=== PATIENT | male | born 1970 | race Caucasian/White ===

== ENCOUNTER → 2020-03-09 14:39 | Outpatient (BNVA) | payer OTHER, SELFPAY | PROVIDERS: Family Provider Nurse Practitioner; PCP Nurse Practitioner; Visit Provider Nurse Practitioner | DX: I10 Essential (primary) hypertension (principal); K40.30 Unilateral inguinal hernia, with obstruction, without gangrene, not specified as recurrent | CPT/HCPCS: 80053; 80061; 81000; 85025 ==

== ENCOUNTER 2020-04-06 11:02 | Outpatient (CLI) | payer OTHER, SELFPAY ==
--- NOTE | 2020-04-06 11:07 | XR_ITS ---
WS: [id number] PELVIS TECHNIQUE: 1 view(s) of the pelvis CLINICAL INFORMATION: M25.551 - Pain in right hip COMPARISON: None. FINDINGS: Moderate to advanced degenerative arthritis right hip with joint space narrowing and near bone-on-bon e articulation. [id number] articulation superolateral joint space. Subchondral sclerosis. Hypertrop hic spurring along the femoral neck. Moderate degenerative arthritis left hip. Pelvic phleboliths. XR/XR pelvis 1-2V* [id number] IMPRESSION: Moderate to advanced degenerative arthritis right hip with [id number] articul ation in the superior lateral joint space with subchondral sclerosis.
== END 2020-04-06 11:03 | disposition home or self-care (01) ==
LOC: RADWPI 11:06
PROVIDERS: PCP Nurse Practitioner; Visit Provider Surgery
DX: M16.11 Unilateral primary osteoarthritis, right hip (principal)
CPT/HCPCS: 72170

== ENCOUNTER → 2020-04-21 15:04 | Outpatient (BNVA) | payer OTHER, SELFPAY | PROVIDERS: PCP Nurse Practitioner; Referring Provider Surgery; Visit Provider Orthopaedic Surgery | DX: M25.551 Pain in right hip (principal) | CPT/HCPCS: 73502 ==

== ENCOUNTER → 2020-05-20 10:38 | Outpatient (BNVA) | payer OTHER, SELFPAY | PROVIDERS: PCP Nurse Practitioner; Visit Provider Orthopaedic Surgery | DX: Z20.822 Contact with and (suspected) exposure to COVID-19 (principal); Z01.812 Encounter for preprocedural laboratory examination | CPT/HCPCS: 87635 ==

== ENCOUNTER 2020-05-25 15:10 | Observation (INO) | payer OTHER, SELFPAY ==
[2020-05-11 10:07] VITALS: BMI 38.6
--- NOTE | 2020-05-11 14:13 | P.ANESASSM_ITS ---
Pre-Anesthetic Assessment Pre-Anesthetic Assessment: Height/Weight: Height 1.83 m Weight 129.274 kg Preop Diagnosis: Osteoarthritis right hip Proposed Procedure: Operation Date: 05/25/20 07:00 Proposed Procedures p Total Hip Arthroplasty right 72351 M16.11(Right) - Norberto Bishop MD Was Beta Pedro taken within 24 hours: N/A Social: Social History: No alcohol and No tobacco Exam: Pre-Anes Outpt Exam: alert, oriented x 3, clear to auscultation bilaterally and regular rate & rhythm Airway: Submandibular: WNL Cervical ROM: WNL MP: 2 Dentition: Full History/ROS: No significant history except as noted Metabolic: Metabolic: Morbid obesity Anesthetic Plan: ASA status: 3 Anesthesia: Regional (specify below) Other: SAB Risk of > 500 ml blood loss (7ml/kg in children): Yes, adequate IV access and fluids planned PFSH Anesthesia 2 PFSH: Medical History HTN (hypertension), benign Surgical History H/O circumcision History of tonsillectomy Hx of vasectomy Family History Other Dementia Diabetes Hypertension Stroke Denies family history of Anesthesia complication Bleeding disorder Cancer Social History Smoking and tobacco status: never smoked Second hand smoke exposure: No Smoking risk assessment/counseling performed?: No Alcohol intake: never Desire information about alcohol rehabilitation?: No Counseling given: No Desire information about substance/drug rehabilitation?: No Counseling given: No Adopted: No Caregiver/support person: No Lives independently: Yes Household members: spouse and children Housing: House Marital status: Number of children: 1 service: No Current occupational status: employed Current occupation: [employer] Pets and animals: Yes Pets & animals: cat(s) History of recent travel: No Current gender identity: Male Data Anesthesia Cardiac Studies: No Data to Display
[2020-05-25] VITALS (20 sets, daily range): BP systolic 78–161; BP diastolic 48–109; PULSE 59–89; RESP 16–20; TEMP 36.3–36.8; O2SAT 94–100
[2020-05-25] MEDS: acetaminophen 500 mg Tablet 1000 MG PO ×2 (08:09→17:17)
[2020-05-25] MEDS: sodium chloride 0.9% 1,000 ML 30 ML IV (08:10)
[2020-05-25] MEDS: gabapentin 300 mg Capsule PO ×2 (08:10→17:18)
[2020-05-25] MEDS: oxyCODONE 20 mg ER (12 HR) Tablet PO (08:10)
[2020-05-25] MEDS: CELEcoxib 200 mg Capsule 400 MG PO (08:11)
--- NOTE | 2020-05-25 08:51 | P.ANESUD_ITS ---
Pre-Anesthetic Update Pre-Anesthetic Assessment: Date of Surgery/Procedure: 05/25/20 Preop [place] gnosis: Osteoarthritis right hip Proposed Procedure: Operation Date: 05/25/20 09:30 Proposed Procedures p Total Hip Arthroplasty right 40514 M16.11(Right) - Norberto Bishop MD Any changes to Pre-Anesthetic Assessment?: No Last Intake: Intake Last Liquid Date 05/25/20 Last Liquid Time 20:30 Last Solid Date 05/24/20 Last Solid Time 20:30 Vitals: Temperature 97.3 F L 05/25/20 07:40 Pulse Rate 78 05/25/20 07:40 Pulse Rhythm 05/25/20 07:41 Respiratory Rate 18 05/25/20 08:10 Respiratory Effort 05/25/20 08:10 Respiratory Depth Normal 05/25/20 08:10 Respiratory Patter n 05/25/20 08:10 Blood Pressure 161/109 05/25/20 07:40 Blood Pressure Love n 126 05/25/20 07:40 Pulse Oximetry 98 05/25/20 08:10 Oxygen Delivery Me thod 05/25/20 07:41 Exam: Pre-Anes Outpt Exam: alert, oriented x 3, clear to auscultation bilaterally and regular rate & rhythm Cardiac Studies: No Data to Display
--- NOTE | 2020-05-25 09:14 | P.HP_ITS ---
Same Day Surgery H&P Indication for Procedure/HPI DATE OF PROCEDURE: May 25, 2020 CHIEF COMPLAINT/INDICATIONFOR SURGICAL PROCEDURE: Osteoarthritis right hip PREOP DIAGNOSIS: Osteoarthritis right hip PLANNED PROCEDRUE: Operation Date: 05/25/20 09:30 Proposed Procedures p Total Hip Arthroplasty right 78414 M16.11(Right) - Norberto Bishop MD Medications/Allergies* Home Medications Medication Instructions Recorded Confirmed Type acetaminophen [Acetaminophen Pain 500 mg PO BID PRN 05/11/20 05/11/20 History Relief] Allergies/Adverse Reactions Allergy/AdvReac Type Severity Reaction Status Date / Time Penicillins Allergy rash Verified 05/25/20 07:38 Pertinent History/Comorbid Conditions* Medical History (Updated 04/21/20 @ 15:49 by Norberto Bishop MD) HTN (hypertension), benign Surgical History (Updated 03/16/20 @ 12:22 by Mohit Lima MD) H/O circumcision History of tonsillectomy Hx of vasectomy Family History (Updated 03/16/20 @ 12:04 by Marquita Montanez LPN) Diabetes Dementia Hypertension Stroke Denies family history of Anesthesia complication Bleeding disorder Cancer Social History Smoking and tobacco status: never smoked Second hand smoke exposure: No Smoking risk assessment/counseling performed?: No Alcohol intake: never Desire information about alcohol rehabilitation?: No Counseling given: No Desire information about substance/drug rehabilitation?: No Counseling given: No Adopted: No Caregiver/support person: No Lives independently: Yes Household members: spouse and children Housing: House Marital status: Number of children: 1 service: No Current occupational status: employed Current occupation: [employer] Pets and animals: Yes Pets & animals: cat(s) History of recent travel: No Current gender identity: Male Pertinent Exam Findings alert, oriented x 3, clear to auscultation bilaterally, regular rate & rhythm and operative site marked Recommendations Surgery/Procedure today Coding Level of Care Code Acute Corporate Development Manager for Yenni Allen
[2020-05-25] MEDS: tranexamic acid 1,000 mg/10mL SDV 1000 MG IRRIGATION (14:29)
--- NOTE | 2020-05-25 15:53 | XRR_ITS ---
PROCEDURE INFORMATION: Exam: XR Right Hip with Pelvis when Performed Exam date and time: 05/25/2020 3:57 PM Age: 49 years old Clinical indication: Device placement; Other: Post total hip arthroplasty; Prior surgery TECHNIQUE: Imaging protocol: XR Right hip with pelvis when performed. Views: 1 view. COMPARISON: CR (PELVIS, ) 04/21/2020 3:10 PM FINDINGS: Bones/joints: Right hip arthroplasty alignment is unremarkable. No periprosthetic fracture. Soft tissues: Foci of soft tissue gas in the right lateral hip. XR/XR hip RT 1V wo/w pel [id number] IMPRESSION: Unremarkable postoperative appearance of right hip arthroplasty.
--- NOTE | 2020-05-25 15:59 | SUR.PHASEI ---
PT AWAKE ALERT ON RA TRIAL, PT DENIES PAIN AND NAUSEA FIRST ICE TO RT HIP DRESSING D/I , ABD PILLOW IN PLACE WITH SCD TO LT LEG WITH DISTAL FOOT PINK WARM WITH STRONG PULSE NOTEDIV PATENT TO RT HAND.
--- NOTE | 2020-05-25 16:00 | PM.OP ---
Operative Report Date of procedure: May 25, 2020 Pre-op Diagnosis: Osteoarthritis right hip Post-op diagnosis: same Post-op Findings: Same Procedure Done: Right total hip arthroplasty Implants: ) [employer] 56 mm ADM acetabular shell 2) Size 7 René 132 degree neck angle SecureFit Max stem 3} 28 mm standard femoral head 4} Restorationa ADM X3 insert Pathology: none sent Surgeon: Norberto Bishop Anesthesia: Nerve Block (Spinal) Estimated blood loss (mL): 100 Complications: None Condition: stable Disposition: PACU Procedure: The patient was taken to the operating room and anesthesia provided by the anesthesia service. The patient was placed in the lateral position on a beanbag. A timeout was performed. The patient was draped in the usual fashion. A 15 cm long incision was made beginning just proximal to the greater trochanter and extending posteriorly to a point just distal to the trochanter on the posterior border of the trochanter. Dissection was carried down with electrocautery through the subcutaneous fat to the fascia nya which was divided proximally and distally with curved scissors. The anterior two thirds of the gluteus medius and minimus were elevated off the hip with electrocautery. The capsule was divided in a H-like fashion. The hip was dislocated and a neck cut made just above the level of the lesser trochanter. Exposure of the acetabulum was facilitated with the acetabular retractors. Remnants of labrum and peripheral osteophytes were removed with electrocautery and a rongeur. A reamer 2 mm under the size the femoral head was utilized to ream medially to the base of the palm and are. Reaming was then increased in 1 mm intervals until a healthy rim a trabecular bone was encountered. A trial ADM cup was placed and its position marked with electrocautery In the acetabulum. A final was press-fit into place. Attention was then focused on the femur. Sequential reaming was done under power until cortical chatter was encountered. Broaching was then accomplished until a stable broach size was obtained. A trial reduction with the head and neck provided excellent stability. The wound was irrigated with saline and antibiotic solution. The final René SecureFit Max stem was press-fit into place. The femoral head was placed and the hip was reduced. The hip was brought through range of motion and found to be free of impingement and stable. The anterior capsule was reapproximated with 1 Ethibond. The gluteus medius and minimus were repaired through bone with 5 Ethibond and reinforced with 1 Ethibond. The fascial nya was closed with a running 0 Stratafix suture. Deep pelvic tissues were closed with 2-0 Stratafix and the skin with a running 3-0 moncryl Stratafix. 1
--- NOTE | 2020-05-25 16:07 | SUR.PHASEI ---
SPINAL LEVEL NOW T-12 FROM T-10 ON ADMIT TO PACU, PT STILL UNABLE TO MOVE TOES.
[2020-05-25 17:02] LABS: Glucose Point of Care 80 mg/dL (70-110)
[2020-05-25] MEDS: sennosides-docusate Tablet 2 TAB PO (17:17)
[2020-05-25] MEDS: sodium chloride 0.9% 1,000 ML 100 ML IV (17:18)
[2020-05-25] MEDS: CELEcoxib 200 mg Capsule PO (20:16)
[2020-05-25] MEDS: oxyCODONE 5 mg IR Tab/Cap 10 MG PO ×2 (20:16→23:35)
[2020-05-25 21:31] LABS: Glucose Point of Care 116 mg/dL (70-110)
[2020-05-26] MEDS: acetaminophen 500 mg Tablet 1000 MG PO ×2 (01:50→08:16)
[2020-05-26 02:40] LABS: Hemoglobin 12.8 g/dL (11.7-16.6)
[2020-05-26] MEDS: sodium chloride 0.9% 1,000 ML 100 ML IV (02:58)
[2020-05-26 04:12] VITALS: BP 120/74; PULSE 88; RESP 18; TEMP 37.4; O2SAT 93
[2020-05-26 04:15] VITALS: RESP 18; O2SAT 97
[2020-05-26] MEDS: oxyCODONE 5 mg IR Tab/Cap 10 MG PO ×2 (04:15→08:20)
[2020-05-26 07:41] VITALS: BP 152/81; PULSE 85; RESP 18; TEMP 37.5; O2SAT 93
--- NOTE | 2020-05-26 08:01 | PM.DCS ---
Discharge Providers Date of Admission: 05/25/20 15:10 Date of Discharge: May 26, 2020 Attending Provider at Admission: Norberto Bishop MD Attending Provider at Discharge: Norberto Bishop MD Primary Care Provider: MABEL Mcdaniels Diagnoses at Discharge Discharge Diagnosis (1) Status post right hip replacement: Status: Acute (2) Osteoarthritis of right hip: Status: Resolved Reason for Visit Reason for Visit: osteoarthrisis right hip Hospital Course Hospital Course The patient was admitted to the hospital after elective right total hip arthroplasty. Postoperatively he did well. His pain was controlled with oral medications. On the first postoperative day he was up with therapy independent with his walker. He was managed with aspirin and sequential compression dressings for DVT prophylaxis. Physical Exam Narrative: EXAM NARRATIVE: On the day of discharge the hip incision was clean. The incision was free of drainage. They had no particular swelling about the thigh or distal. No distal neurovascular deficits were noted. Discharge Data Data Completed and Pending: Completed Studies During Hospitalization Category Date Time Status XR hip RT 1V wo/w pel [id number] Routine Exams 05/25/20 15:53 Completed Labs from last 24 hours 05/26/20 05/25/20 05/25/20 02:20 20:33 16:50 Hgb 12.8 POC Glucose 116 H 80 Vitals: Last Vital Signs Temp 99.5 F 05/26/20 07:41 Pulse 85 05/26/20 07:41 Resp 18 05/26/20 07:41 BP 152/81 05/26/20 07:41 Pulse Ox 93 05/26/20 07:41 Discharge Plan Discharge Patient Disposition: Home Prescriptions: New oxycodone 5 mg Tablet 5 mg PO Q4H PRN (Reason: Severe Pain) 7 Days Qty: 40 RF: 0 celecoxib 200 mg Capsule 200 mg PO Q12H 15 Days Qty: 30 RF: 0 gabapentin 300 mg Capsule 300 mg PO BID 14 Days Qty: 28 RF: 0 acetaminophen 500 mg Tablet 500 mg PO Q6H 30 Days Qty: 120 RF: 0 aspirin 325 mg Tablet,Delayed Release (Dr/Ec) 325 mg PO DAILY 30 Days Qty: 30 RF: 0 Discontinued mupirocin 2 % ointment 1 applic topical BID Qty: 22 RF: 0 Acetaminophen Pain Relief 500 mg Tablet 500 mg PO BID PRN (Reason: Pain) RF: 0 Discharge Orders: Discharge Order (Routine); Ordered 05/26/20 Ordered By: Norberto Bishop Other Ambulatory Orders: DME: Walker (Order) Location: None Selected Ordered By: Norberto Bishop Referrals: Norberto Bishop MD [Physician] - 2 weeks Discharge Diet: Advance as tolerated Discharge Activity: Limit activity as instructed Activity Restrictions/Additional Instructions: Okay to shower. No soaking incision in tub Apply FirstIce up to 20 min/hr for pain and swelling Take Celebrex twice a day for the next 15 days for pain , discontinue other anti-inflammatories Take Neurontin twice a day for 7 days. Take Tylenol 325mg (up to 3 tabs) 3 times a day for mild pain take oxycodone for breakthrough pain. Exercises per physical therapy. May weight-bear as tolerated on total hip arthroplasty Discharge Attestations Time Spent in Discharge Care*: other Quality Metrics Clinical Quality Measures During this hospital stay, did patient experience: None Coding Level of Care Code Acute Sound Engineering Technician for Yenni Allen Diagnoses Status post right hip replacement Z96.641 Osteoarthritis of right hip M16.11
[2020-05-26] MEDS: CELEcoxib 200 mg Capsule PO (08:16)
[2020-05-26] MEDS: sennosides-docusate Tablet 2 TAB PO (08:16)
[2020-05-26] MEDS: gabapentin 300 mg Capsule PO (08:17)
[2020-05-26] MEDS: aspirin 325 mg EC Tablet PO (08:17)
[2020-05-26 08:20] VITALS: RESP 18
[2020-05-26 08:55] LABS: Glucose Point of Care 132 mg/dL (70-110)
--- NOTE | 2020-05-26 10:10 | PC.CHAP ---
Pastoral Care Encounter/Spiritual Assessment Type of Contact [] Declined senior account manager visit [] Patient/Family/Request visit [] Outpatient visit [] Follow-up visit [] Physician referral [] Code/Alert [x] Routine visit [] Staff referral [] Actively dying [] Patient sleeping [] Family support [] [] Out of room [] Palliative care [] [x] Receiving care in room [] Pre-surgical visit [] Trauma [] Long length of stay [] ICU visit [] Other: Relational/Emotional Strength [] Patient feels connected with others/family/visitors/staff [] Distress [] Loneliness/isolation [] Abandonment Spirituality of Patient [] Person of Ellen [] Attends Advent of their Ellen [] Believes in Prayer [] Reads Bible or Tenriism materials [] There are Spiritual issues to be addressed Care Nurse Rn Interventions [] Prayer [] Active listening [] Non-anxious presence [] Spiritual/emotional support [] Crisis/trauma care [] Spiritual counseling [] Bereavement support [] Provided bereavement packet [] Provided Bible/devotional materials [] Provided toy/stuffed animal, coloring book to patient or family member [] Provided Communion [] Anointing/[place] [] Salvation [] Completed spiritual assessment [] Other: Impact on Illness or Injury [] Angry [] Fearful [] Anxious [] Often cries [] Exhaustion [] Unable to work [] Unable to attend adventist [] Unable to walk/stand [] Unable to read [] Unable to drive [] Unable to eat/drink [] Unable to sleep [] Unable to be with family [] Patient intubated [] Other: Summary Time spent with patient
[2020-05-26 11:53] VITALS: BP 107/61; PULSE 93; RESP 18; TEMP 37.1; O2SAT 96
[2020-05-26] MEDS: ondansetron 2 mg/ML SDV 2 mL 4 MG IVP (11:54)
--- NOTE | 2020-05-26 11:58 | PC.NURSE ---
Nausea Pt c/o nausea and was given 4mg zofran iv. Blood pressure has improved at 112/80.
[2020-05-26 14:53] VITALS: BP 107/61; PULSE 93; RESP 18; TEMP 37.1; O2SAT 96
== END 2020-05-26 15:00 | disposition home or self-care (01) ==
LOC: MEDSURG 15:10
PROVIDERS: Admitting Provider Orthopaedic Surgery; PCP Nurse Practitioner; Visit Provider Orthopaedic Surgery
PROC: (CPT 27130; principal; 2020-05-25 09:30)
DX: M16.11 Unilateral primary osteoarthritis, right hip (principal); E66.01 Morbid (severe) obesity due to excess calories; Z68.38 Body mass index [BMI] 38.0-38.9, adult
CPT/HCPCS: 27130; 12345; 36415; 36416; 73501; 82962; 85018; 97116; 97161; 97165; 97530; C1776; G0378; J0690; J1580; J2250; J2405; J2704; J3010; J7030

== ENCOUNTER → 2020-07-07 09:07 | Outpatient (BNVA) | payer OTHER, SELFPAY | PROVIDERS: PCP Nurse Practitioner; Visit Provider Orthopaedic Surgery | DX: Z96.641 Presence of right artificial hip joint (principal) | CPT/HCPCS: 73502 ==

== ENCOUNTER 2021-05-21 11:59 | Observation (INO) | payer OTHER, SELFPAY ==
[2021-05-21 12:09] VITALS: BP 166/84; PULSE 94; RESP 18; TEMP 36.6; O2SAT 96; BMI 39.3
--- NOTE | 2021-05-21 12:13 | XR_ITS ---
WS: [id number] XR chest 1V portable [id number] REASON FOR EXAM: CP FINDINGS: The heart and mediastinum are within normal limits. Calcified granulomatous changes in both thoraces. Elevation of the lateral left hemidiaphragm. No acute pulmonary parenchymal or pleural abnormality. Degenerative spondylosis in the mid and lower thoracic spine. XR/XR chest 1V portable [id number] IMPRESSION: No acute abnormality.
--- NOTE | 2021-05-21 12:13 | ECG_ITS ---
[facility] Test Date: 2021-05-21 Pat Name: Rei Rosenberg Department: Room: Gender: Male Data Manager: : 1970 Requested By: Robert Florentino Order Number: [id number] Phoebe MD: Emerson Lenz M.D. Measurements Intervals [place] Rate: 96 P: 46 SD: 183 QRS: -21 QRSD: 90 T: 56 QT: 344 QTc: 435 Interpretive Statements SINUS RHYTHM BORDERLINE LEFT AXIS DEVIATION [QRS AXIS < -20] POSSIBLE RIGHT VENTRICULAR CONDUCTION DELAY [RSR (QR) IN V1/V2] No previous ECG available for comparison Electronically Signed On 05-21-2021 17:39:14 FREIGHT SORTER by Emerson Lenz M.D. [id number]
--- NOTE | 2021-05-21 13:48 | ED_ITS ---
HPI - Chest Pain General: Chief Complaint: ER Hold Stated Complaint: cp Time Seen by Provider: 05/21/21 13:48 History of Present Illness: Mr. Rosenberg is a 50-year-old gentleman without significant past medical history presents emergency department due to chest pain. He reports being at his baseline health past few days. This morning, while shoveling snow he developed chest pressure in the middle of his chest with radiation to left chest as well as nausea, diaphoresis, and ashen appearance. Intensity of symptoms was moderate to severe. He was short of breath with this. He reports that this has slowly resolved and is only minimal intensity. He has not had similar episode in the past. Denies history of smoking, no known history of hypertension or other cardiac risk factors, no positive family history less than 60. No other specific change in health, exacerbating, relie ving factors identified. Onset (ago): hour(s) Timing of current episode: constant and still present Prior episodes: No Onset: during exertion Pain location: substernal Severity: severe Quality: aching and heaviness Relieving factors: nothing Exacerbating factors: exertion Associated symptoms: Reports diaphoresis, dyspnea, nausea and vomiting Review of Systems General: Reports: 10 or more systems reviewed and unremarkable except in HPI and below Const: Reports: diaphoresis Resp: Reports: dyspnea GI: Reports: nausea and vomiting PFSH ED PFSH: Medical History HTN (hypertension), benign Inguinal hernia of right side with obstruction and without gangrene Obesity Surgical History H/O circumcision History of hip replacement History of tonsillectomy Hx of vasectomy Family History Father CAD (coronary artery disease) Mother CAD (coronary artery disease) Other Dementia Diabetes Hypertension Stroke Denies family history of Anesthesia complication Bleeding disorder Cancer Social History Smoking and tobacco status: never smoked Second hand smoke exposure: No Smoking risk assessment/counseling performed?: No Alcohol intake: never Desire information about alcohol rehabilitation?: No Counseling given: No Desire information about substance/drug rehabilitation?: No Counseling given: No Adopted: No Caregiver/support person: No Lives independently: Yes Household members: spouse and children Housing: House Marital status: Number of children: 1 service: No Current occupational status: employed Current occupation: [employer] Pets and animals: Yes Pets & animals: cat(s) History of recent travel: No Current gender identity: Male Physical Exam Const: COMMON NORMALS: alert GENERAL APPEARANCE: cooperative and well developed NUTRITIONAL APPEARANCE: obese HENMT: COMMON NORMALS: normocephalic and atraumatic HEAD & SCALP: normocephalic and atraumatic Eye: COMMON NORMALS: conjunctivae normal CONJUNCTIVA: Yes conjunctivae normal SCLERA: sclerae normal Neck/C-Spine: COMMON NORMALS: supple GENERAL: Yes trachea midline Resp: COMMON NORMALS: normal respiratory effort EFFORT & INSPECTION: Yes able to speak in complete sentences Cardio: COMMON NORMALS: regular rate and regular rhythm RATE: regular rate RHYTHM: regular rhythm GI: COMMON NORMALS: Soft to palpation PALPATION: Yes Soft to palpation and No Tenderness to palpation present (GI) PERCUSSION: normal to percussion Extremity: GENERAL: Yes normal exam except as noted and No edema Neuro: COMMON NORMALS: moves all extremities SENSORIUM/ORIENTATION: Yes alert and No Orientation impaired Psych: COMMON NORMALS: mental status grossly normal and Normal thought process present THOUGHT PROCESS: Normal thought process present Course ED course: - Patient was seen and evaluated by me at bedside - Patient placed on cardiac monitors, IV access obtained - Initial evaluation notable for exam as above -Aspirin given - Labs notable for mild dehydration. Negative troponins. - Imaging notable for no lobar consolidation on chest x-ray - Upon serial reexamination after treatment the patient was similar. - Based on patient history, evaluation, labs, and imaging as interpreted the mos t likely cause of the patient's condition is chest pain -Discussed with cardiology for potential cardiac cath - The results of ED evaluation were discussed with the patient including plan for admission due to requirement for level of care not available if discharged to prevent significant worsening/deterioration. - Admitting service was contacted and Dr Yu with the hospitalist service agreed to admit the patient - Patient was admitted without further deterioration or significant events. Note: Click bubbles or prepopulated silva in note writing are used for assistance with data collection and billing and are inherently more limited than narrative and other text portions of this note. Please use narrative for additional clinical history and defer to narrative/free test for any case of contradictory information. If information appears in only free text or click bubble it shou ld be considered present or absent as reported. Please contact note business writer for clarifications of clinical information or contradictory information. MDM is a brief summary, contradictory or erroneous seeming information should be clarified and full note should be reviewed. Vital Signs: Vital signs: Vital Signs Temperature 98.2 F 05/22/21 09:11 Pulse Rate 78 05/22/21 16:15 Respiratory Rate 17 05/22/21 16:15 Blood Pressure 120/78 05/22/21 18:00 Pulse Oximetry 92 05/22/21 09:11 MDM - Chest Pain Medical Decision Making 50-year-old gentleman with obesity presenting with chest pain in the context of exertion. Patient has typical cardiac chest pain during this exertional episode without history of frequent. Heart score is moderate risk. After discussion with cardiology patient will be admitted for likely cardiac cath. Medical Records I reviewed the patient's medical records. Lab Data I reviewed the patient's lab results. : 05/22/21 05:02 05/22/21 05:02 Radiology Impressions Chest X-Ray 05/21/21 12:13 IMPRESSION: No acute abnormality. Laboratory Results WBC 8.3 10^3/uL (4.0-10.0) 05/21/21 14:32 RBC 5.35 10^6/uL (4.1-5.3) H 05/21/21 14:32 Hgb 15.4 g/dL (11.7-16.6) 05/21/21 14:32 Hct 49.0 % (42.0-52.0) 05/21/21 14:32 MCV 91.6 fl (80-94) 05/21/21 14:32 MCH 28.8 pg (28.0-34.0) 05/21/21 14:32 MCHC 31.4 g/dL (30.0-36.0) 05/21/21 14:32 RDW 13.5 % (12.1-15.1) 05/21/21 14:32 Plt Count 217 10^3/cmm (130-400) 05/21/21 14:32 MPV 11.6 fL (7.4-10.4) H 05/21/21 14:32 Neut % (Auto) 65.9 % 05/21/21 14:32 Lymph % (Auto) 22.4 % 05/21/21 14:32 [place] % (Auto) 8.9 % 05/21/21 14:32 Eos % (Auto) 1.7 % 05/21/21 14:32 Baso % (Auto) 0.7 % 05/21/21 14:32 Neut # (Auto) 5.50 10^3/uL (1.8-7.7) 05/21/21 14:32 Lymph # (Auto) 1.9 10^3/uL (0.8-4.8) 05/21/21 14:32 [place] # (Auto) 0.7 10^3/uL (0.2-0.9) 05/21/21 14:32 Eos # (Auto) 0.1 10^3/uL (0.0-0.8) 05/21/21 14:32 Baso # (Auto) 0.1 10^3/uL (0.0-0.1) 05/21/21 14:32 Nucleated RBC % (auto) 0 % 05/21/21 14:32 Nucleated RBCs # 0.0 /100WBC 05/21/21 14:32 Sodium 138 mmol/L (136-145) 05/21/21 15:55 Potassium 4.4 mmol/L (3.5-5.1) 05/21/21 15:55 Chloride 102 mmol/L (98-107) 05/21/21 15:55 Carbon Dioxide 21 mmol/L (22-29) L 05/21/21 15:55 Anion Gap 19.4 (5-19) H 05/21/21 15:55 BUN 16 mg/dL (6-20) 05/21/21 15:55 Creatinine 0.9 mg/dL (0.7-1.2) 05/21/21 15:55 GFR Calculation 89.0 mL/min (90-130) L 05/21/21 15:55 Glucose 86 mg/dL (65-115) 05/21/21 15:55 Calculated Osmolality 286 mOsm/kg (285-295) 05/21/21 15:55 Calcium 10.0 mg/dL (8.5-10.5) 05/21/21 15:55 Total Bilirubin 0.3 mg/dL (0.15-1.2) 05/21/21 15:55 AST 24 U/L (0-40) 05/21/21 15:55 ALT 33 U/L (0-41) 05/21/21 15:55 Alkaline Phosphatase 76 IU/L (40-130) 05/21/21 15:55 Troponin T Baseline 11 ng/L (0-15) 05/21/21 14:32 Troponin T 120 Minute 11.17 ng/L (0-15) 05/21/21 15:55 Delta Troponin T 0.17 ABS# (0-10) 05/21/21 15:55 NT-Pro-B Natriuret Pep 18 pg/mL (0-125) 05/21/21 15:55 Total Protein 7.3 g/dL (6.6-8.7) 05/21/21 15:55 Albumin 4.4 g/dL (3.5-5.2) 05/21/21 15:55 Globulin 2.9 g/dL (1.3-4.6) 05/21/21 15:55 Lipase 38 U/L (13-60) 05/21/21 15:55 EKG Data EKG 1: I personally reviewed and interpreted this EKG as follows: EKG interpretation date: 05/21/21 EKG interpretation time: 17:20 Interpretation: Twelve-lead EKG shows a regular rhythm at a rate of 78. HI interval 194, QRS duration 97, QTc 401. Normal axis. Interpretation: Sinus rhythm. EKG 2: I personally reviewed and interpreted this EKG as follows: EKG interpretation date: 05/21/21 EKG interpretation time: 21:52 Interpretation: Twelve-lead EKG shows a regular rhythm at a rate of 77. HI interval 196, QRS duration 92, QTc 392. Normal axis. Interpretation: Sinus rhythm. Discharge Plan Discharge Patient Disposition: Placed in Observation Admit Provider: Souleymane Yu Clinical Impression: Chest pain Discharge Diet: Cardiac and Diabetic Discharge Activity: Increase activity as tolerated and Limit activity as instructed Coding Level of Care Code ED Vrt Mechanic for Chg Tiffany
--- NOTE | 2021-05-21 14:13 | ECG_ITS ---
[facility] Test Date: 2021-05-21 Pat Name: Rei Rosenberg Department: Room: Gender: Male Manager Warehouse: : 1970 Requested By: Robert Florentino Order Number: [id number] Phoebe MD: Emerson Lenz M.D. Measurements Intervals [place] Rate: 78 P: 45 LA: 194 QRS: -20 QRSD: 97 T: 66 QT: 367 QTc: 420 Interpretive Statements SINUS RHYTHM INCOMPLETE RIGHT BUNDLE BRANCH BLOCK [90+ ms QRS DURATION, TERMINAL R IN V1/V2, 40+ ms S IN I/aVL/V4/V5/V6] NONSPECIFIC T-WAVE ABNORMALITY Compared to ECG 05/21/2021 12:08:38 Incomplete right bundle-branch block now present T-wave abnormality now present Electronically Signed On 05-22-2021 0:45:33 FLOOR COVERING PRINTER by Emerson Lenz M.D. [id number] f
[2021-05-21 14:43] LABS: Basophils # 0.1 10^3/uL (0.0-0.1); Basophils % 0.7 %; Eosinophils # 0.1 10^3/uL (0.0-0.8); Eosinophils % 1.7 %; Hemoglobin 15.4 g/dL (11.7-16.6); Lymphocytes # 1.9 10^3/uL (0.8-4.8); Lymphocytes % 22.4 %; Mean Corpuscular HGB Conc 31.4 g/dL (30.0-36.0); Mean Corpuscular Hemoglobin 28.8 pg (28.0-34.0); Mean Corpuscular Volume 91.6 fl (80-94); Mean Platelet Volume 11.6 fL (7.4-10.4); Monocytes # 0.7 10^3/uL (0.2-0.9); Monocytes % 8.9 %; Neutrophils % 65.9 %; Nucleated Red Blood Cells % 0 %; Platelet Count 217 10^3/cmm (130-400); Red Blood Count 5.35 10^6/uL (4.1-5.3); Red Cell Distribution Width 13.5 % (12.1-15.1); White Blood Count 8.3 10^3/uL (4.0-10.0)
[2021-05-21] MEDS: aspirin 81 mg Chew Tablet 324 MG PO (15:00)
[2021-05-21 15:13] LABS: Troponin(5th) Baseline 11 ng/L (0-15)
[2021-05-21 16:24] VITALS: BP 140/74; PULSE 83; RESP 16; TEMP 36.8; O2SAT 97
[2021-05-21 16:50] LABS: Alanine Aminotransferase 33 U/L (0-41); Albumin Level 4.4 g/dL (3.5-5.2); Alkaline Phosphatase 76 IU/L (40-130); Anion Gap 19.4 (5-19); Aspartate Amino Transferase 24 U/L (0-40); Blood Urea Nitrogen 16 mg/dL (6-20); Carbon Dioxide 21 mmol/L (22-29); Chloride 102 mmol/L (98-107); Globulin 2.9 g/dL (1.3-4.6); Glucose 86 mg/dL (65-115); Lipase 38 U/L (13-60); NT Pro B Type Natriuretic Pept 18 pg/mL (0-125); Osmolality Calculated 286 mOsm/kg (285-295); Potassium 4.4 mmol/L (3.5-5.1); Sodium 138 mmol/L (136-145); Total Bilirubin 0.3 mg/dL (0.15-1.2); Total Protein 7.3 g/dL (6.6-8.7)
[2021-05-21 17:19] LABS: Troponin 5 2HR 11.17 ng/L (0-15)
[2021-05-21 17:45] LABS: Troponin 5 2HR Delta 0.17 ABS# (0-10)
[2021-05-21 18:06] VITALS: BP 134/78; PULSE 80; RESP 17; TEMP 36.7; O2SAT 96
[2021-05-21 19:10] LABS: Troponin 5 6HR 10.64 ng/L (0-15)
--- NOTE | 2021-05-21 19:54 | PM.HP ---
Providers/Chief Complaint Admitting Physician: Souleymane Yu Primary Care Provider: Rock Lowery, BIOSTATISTICS DIRECTOR-C Chief Complaint: cp History of Present Illness 50-year-old gentleman with obesity, family history of coronary artery disease, who has been having episodes of chest tightness/discomfort mostly with exertion, central, nonradiating, previously alleviated by rest, but during the current episode was shoveling snow, with severe episode of chest tightness, shortness of breath, nausea, and was described as looking pale or yap by his who is a cardiac nurse practitioner and directed him to go to ER. The current episode was much worse than previously. It has now significantly improved, but he still has discomfort about 3/10 residual. Denies any positional change. Denies it being worse while supine. Denies any fever, chills, cough, unilateral leg swelling. Denies pain on swallowing or symptoms of dyspepsia. Review of Systems Const: Denies: fever(s), chills, body aches or malaise Eyes: Reports: change in vision; Denies: eye redness ENMT: Denies: throat pain, oral sores or ear or mastoid pain Card: Reports: chest pain, palpitations, swelling of feet/ankles (minimal sock line), pre-syncope and dyspnea on exertion; Denies: edema or orthopnea Resp: Denies: dyspnea, productive cough, change in phlegm color or hemoptysis GI: Denies: abdominal pain, nausea, vomiting, diarrhea, constipation, hematochezia or melena : Denies: flank pain, difficulty urinating, urinary frequency or hematuria Musc: Denies: back pain, joint swelling or joint redness Skin/Breast: Denies: rash, sores or new lesions Neuro: Denies: headache(s), numbness in extremities, weakness in extremities, dizziness, confusion or seizure-like activity Endo: Denies: polyuria or polydipsia Markus/Lymph: Denies: easy bleeding or purpura All/Imm: Denies: urticaria, throat swelling or tongue swelling Medications/Allergies Home Medications Medication Instructions Recorded Confirmed Last Taken Type acetaminophen 500 mg tablet 500 mg PO Q6H PRN 07/07/20 08/04/20 Unknown History naproxen sodium 220 mg tablet 220 mg PO Q8H 07/07/20 08/04/20 Unknown History (Aleve) Allergies Allergy/AdvReac Type Severity Reaction Status Date / Time Penicillins Allergy rash Verified 08/04/20 08:57 PFSH Acute PFSH: Medical History (Updated 05/21/21 @ 20:16 by Souleymane Yu MD) HTN (hypertension), benign Inguinal hernia of right side with obstruction and without gangrene Obesity Surgical History (Updated 05/21/21 @ 20:15 by Souleymane Yu MD) H/O circumcision History of hip replacement History of tonsillectomy Hx of vasectomy Family History (Updated 05/21/21 @ 20:15 by Souleymane Yu MD) Father CAD (coronary artery disease) Mother CAD (coronary artery disease) Other Dementia Diabetes Hypertension Stroke Denies family history of Anesthesia complication Bleeding disorder Cancer Social History Smoking and tobacco status: never smoked Second hand smoke exposure: No Smoking risk assessment/counseling performed?: No Alcohol intake: never Desire information about alcohol rehabilitation?: No Counseling given: No Desire information about substance/drug rehabilitation?: No Counseling given: No Adopted: No Caregiver/support person: No Lives independently: Yes Household members: spouse and children Housing: House Marital status: Number of children: 1 service: No Current occupational status: employed Current occupation: [employer] Pets and animals: Yes Pets & animals: cat(s) History of recent travel: No Current gender identity: Male Vitals/I&O/Wt Last Vital Signs Temp 98.0 F 05/21/21 18:06 Pulse 80 05/21/21 18:06 Resp 17 05/21/21 18:06 BP 134/78 05/21/21 18:06 Pulse Ox 96 05/21/21 18:06 Weight last 48 hrs Weight 131.542 kg Physical Exam Const: COMMON NORMALS: no acute distress and patient oriented x3 NUTRITIONAL APPEARANCE: obese HENMT: COMMON NORMALS: oropharynx normal Neck/C-Spine: COMMON NORMALS: no JVD Resp: COMMON NORMALS: normal respiratory effort and clear to auscultation bilaterally AUSCULTATION: clear to auscultation bilaterally Cardio: COMMON NORMALS: no JVD, regular rhythm, S1 normal heart sound present, S2 normal heart sound present and No murmurs present (Cardio) RHYTHM: regular rhythm HEART SOUNDS: S1 normal heart sound present and S2 normal heart sound present GI: COMMON NORMALS: Normal to inspection, nondistended, normoactive bowel sounds present, Soft to palpation and non-tender PALPATION: Yes Soft to palpation Extremity: COMMON NORMALS: no joint enlargement and no pedal edema Neuro: COMMON NORMALS: patient oriented x3 and moves all extremities Skin: COMMON NORMALS: no rashes or lesions noted GENERAL SKIN EXAM: no rashes or lesions noted Data : 05/21/21 14:32 05/21/21 15:55 A&P Assessment and plan (1) Chest pain: Severe central chest pain, associated with shortness of breath, also notes was having tachycardia, feeling lightheaded, was described as pale or yap-colored by his girlfriend after shoveling snow. Reports mild episodes of chest pain triggered by exertion previously. Currently symptoms mostly improved, but still persistent at 3/10. Troponin series so far without elevation. EKG so far with nonspecific changes/T wave abnormality. Factors of coronary disease include obesity, hypertension as documented, although he denies history of hypertension. History of CAD/VT in both parents. Possible unstable angina. Received aspirin. Continue. Discussed with him additional measures given persistent symptoms, possible unstable angina, discussed anticoagulation, beta-junior, will also assess cholesterol panel, A1c. TTE Monitor on telemetry Cardiology consultation Status: Acute (2) Pre-syncope: Possible unstable angina. Possible symptoms secondary to arrhythmia as he notes also palpitations. No arrhythmia noted here, although with persistent chest discomfort. Monitor on telemetry. Additional work-up as above. Consider event monitor at discharge. Status: Acute (3) Palpitations: As above. Status: Acute Plan Reports occasional visual disturbance with things turning about him. Not currently. Attestations Medical Necessity Statement*: Place in observation for assessment of management of possible unstable angina, presyncopal event and gentleman with risk factors of coronary disease. Coding Level of Care Code Acute [place] Press Tender for Yenni Allen Diagnoses Chest pain R07.9 Pre-syncope R55 Palpitations R00.2
[2021-05-21 20:03] VITALS: BP 147/102; PULSE 87; RESP 16; TEMP 36.7; O2SAT 95
[2021-05-21] MEDS: metoprolol tartrate 25 mg Tablet PO (20:47)
--- NOTE | 2021-05-21 22:22 | ECG_ITS ---
[facility] Test Date: 2021-05-21 Pat Name: Rei Rosenberg Department: Room: EDIP Gender: Male Retail Operations Specialist: : 1970 Requested By: Trevin Nayak Order Number: [id number] Phoebe MD: Emerson Lenz M.D. Measurements Intervals [place] Rate: 77 P: 50 HI: 196 QRS: -7 QRSD: 92 T: 53 QT: 360 QTc: 409 Interpretive Statements SINUS RHYTHM LOW QRS VOLTAGE IN PRECORDIAL LEADS [QRS DEFLECTION < 1.0 mV IN CHEST LEADS] Compared to ECG 05/21/2021 17:12:33 Low QRS voltage now present Incomplete right bundle-branch block no longer present T-wave abnormality no longer present Electronically Signed On 05-22-2021 0:44:55 FINANCIAL RESERVE CLERK by Emerson Lenz M.D. [id number] f
[2021-05-22] VITALS (22 sets, daily range): BP systolic 101–143; BP diastolic 57–93; PULSE 70–78; RESP 10–22; TEMP 36.8; O2SAT 92–100
[2021-05-22 05:15] LABS: Basophils # 0.1 10^3/uL (0.0-0.1); Basophils % 0.7 %; Eosinophils # 0.2 10^3/uL (0.0-0.8); Eosinophils % 2.5 %; Hematocrit 47.1 % (42.0-52.0); Hemoglobin 14.9 g/dL (11.7-16.6); Lymphocytes # 1.8 10^3/uL (0.8-4.8); Lymphocytes % 25.4 %; Mean Corpuscular HGB Conc 31.6 g/dL (30.0-36.0); Mean Corpuscular Hemoglobin 29.1 pg (28.0-34.0); Mean Platelet Volume 11.4 fL (7.4-10.4); Monocytes # 0.6 10^3/uL (0.2-0.9); Monocytes % 7.9 %; Neutrophils % 63.2 %; Nucleated Red Blood Cells % 0 %; Platelet Count 198 10^3/cmm (130-400); Red Blood Count 5.12 10^6/uL (4.1-5.3); Red Cell Distribution Width 13.5 % (12.1-15.1); White Blood Count 7.1 10^3/uL (4.0-10.0)
[2021-05-22 05:46] LABS: Anion Gap 15.4 (5-19); Blood Urea Nitrogen 15 mg/dL (6-20); Calcium 9.9 mg/dL (8.5-10.5); Carbon Dioxide 24 mmol/L (22-29); Chloride 102 mmol/L (98-107); Cholesterol 183 mg/dL (0-200); Glucose 106 mg/dL (65-115); HDL Cholesterol 31 mg/dL (60-100); LDL Cholesterol Calculated 117 mg/dL (50-129); LDL HDL Ratio 3.77 RATIO (0.00-3.22); Osmolality Calculated 285 mOsm/kg (285-295); Potassium 4.4 mmol/L (3.5-5.1); Sodium 137 mmol/L (136-145); Thyroid Stimulating Hormone 3.93 uIU/mL (0.27-4.20); Triglycerides 173 mg/dL (0-150)
--- NOTE | 2021-05-22 06:00 | USCV_ITS ---
Chet Rei Age: 50 Gender: M : 1970 Exam Date: 05/22/2021 07:25 Ordering Phys: Souleymane Yu MD Technologist: SARAHI Exam Location: [facility] [place] Indication: CHEST PAIN BP: 132 / 93 HR: 73 Rhythm: Sinus Technical Quality: Adequate MEASUREMENTS (Male / Female) Normal Values 2D ECHO LV Diastolic Diameter PLAX 4.4 cm 4.2 - 5.9 / 3.9 - 5.3 cm LV Systolic Diameter PLAX 3.0 cm IVS Diastolic Thickness 1.3 cm 0.6 - 1.0 / 0.6 - 0.9 cm IVS Systolic Thickness 1.5 cm LVPW Diastolic Thickness 1.1 cm 0.6 - 1.0 / 0.6 - 0.9 cm LVPW Systolic Thickness 1.8 cm LVOT Diameter 2.0 cm LV Ejection Fraction 2D Teich 57.8 % LV Ejection Fraction MOD 2C 64.2 % LV Ejection Fraction 2C AL 64.7 % LA Diameter 3.7 cm LA Width 2.5 cm LA Height 5.6 cm RA Width 3.6 cm RA Height 5.5 cm Aorta at Sinotubular Diameter 2.9 cm M-MODE Aortic Annulus Diameter 3.5 cm LA Ao Ratio MM 0.9 MV E Point Septal Separation 0.9 cm DOPPLER AV Peak Velocity 111.0 cm/s LVOT Peak Velocity 101.0 cm/s AV Area Cont Eq vti 2.6 cm squared AV Area Cont Eq pk 2.9 cm squared MV Area PHT 7.6 cm squared Mitral E to A Ratio 0.8 MV E' Velocity 31.0 cm/s Mitral E to MV E' Ratio 6.4 Mitral E to LV E' Lateral Ratio 5.7 Mitral E to LV E' Septal Ratio 7.3 TR Peak Velocity 226.7 cm/s TR Peak Gradient 20.6 mmHg TR Mean Velocity 178.0 cm/s TR Mean Gradient 13.8 mmHg TR Velocity Time Integral 51.9 cm Right Atrial Pressure 3.0 mmHg Pulmonary Artery Systolic Pressu 23.6 mmHg RV Acceleration Time 0.0 s RV Ejection Time 0.2 s RV AcT/ET 0.2 FINDINGS Left Ventricle Normal left ventricular size, upper normal wall thickness and systolic function with no diagnostic regional wall motion abnormalities. Left ventricular ejection fraction is estimated at 60-65 %. Normal diastolic function. Right Ventricle Normal right ventricular size and systolic function. Right ventricular systolic pressure 23.6 mmHg. Right Atrium Normal right atrial size. Left Atrium Upper normal left atrial size. Mitral Valve Structurally normal mitral valve. No mitral valve stenosis. No mitral valve regurgitation. Aortic Valve Structurally normal trileaflet aortic valve. No aortic valve stenosis. No aortic valve regurgitation. Tricuspid Valve Structurally normal tricuspid valve. No tricuspid valve stenosis. Trace tricuspid valve regurgitation. Pulmonic Valve Pulmonic valve not well visualized. No pulmonary valve stenosis. No pulmonary valve regurgitation. Pericardium No pericardial effusion. Aorta Normal size aortic root and proximal ascending aorta. CONCLUSIONS 1. Normal left ventricular size, upper normal wall thickness and systolic function with no diagnostic regional wall motion abnormalities. Left ventricular ejection fraction is estimated at 60-65 %. Normal diastolic function. 2. Normal right ventricular size and systolic function. 3. Normal pulmonary artery pressure. 4. No significant valvular abnormality. 5. No prior similar studies to compare. Aruna Keane MD (Electronically Signed) Final Date: 22 May 2021 08:56 S
[2021-05-22 06:12] LABS: Estmated Average Glucose 137; Hemoglobin A1C 6.4 % (4.0-6.0)
--- NOTE | 2021-05-22 07:41 | PC.NURSE ---
Received report assumed care. US in room. NO acute distress noted.
[2021-05-22] MEDS: aspirin 325 mg EC Tablet PO (08:02)
[2021-05-22] MEDS: enoxaparin 150 mg/mL Syringe 130 MG SUBCUT (08:02)
[2021-05-22] MEDS: metoprolol tartrate 25 mg Tablet PO (09:10)
--- NOTE | 2021-05-22 10:26 | P.CONIM_ITS ---
Providers/Reason For Consult Consulting Physician/Specialty*: Dr. Keane, cardiology Reason for Consult*: Chest pain Attending Physician: Souleymane Yu Primary Care Provider: MABEL Mcdaniels History of Present Illness History of Present Illness Rei Rosenberg is a 50 year old male with past medical history of obesity, hypertension (not on meds , mentioned in chart), history of CAD in mother in her 60s and father in his 70s, history of right hip osteoarthritis s/p hip replacement for evaluation of chest discomfort. Patient was shoveling snow around 3 in the morning yesterday when after 5 minutes he developed retrosternal chest discomfort 7/10 in intensity without any along with diaphoresis, almost passing out, nausea with one episode of vomiting. Patient's Rosie describes patient appeared yap at the time. The pain lasted about 5 to 10 minutes and patient felt better after that and went to work. He developed another episode and decided to come to the ER for further evaluation. He had few other episodes of chest discomfort while at rest overnight and this morning. Denies any URI or UTI-like symptoms denies any bleeding complications. No prior cardiac work-up. On arrival to the ER blood pressure was 166/84 mmHg, heart rate 94 bpm. Baseline troponin T of 11 at 2 hours of 11 and at 6 hours of 10.6. He received aspirin 324 mg x 1 and Lovenox 130 mg subcu at this morning at 0800. EKG showed sinus rhythm with no significant ST-T wave changes. Review of Systems Const: Denies: fever(s), chills, body aches or malaise Eyes: Reports: change in vision; Denies: eye redness ENMT: Denies: throat pain, oral sores or ear or mastoid pain Card: Reports: chest pain, palpitations, swelling of feet/ankles (minimal sock line), pre-syncope and dyspnea on exertion; Denies: edema or orthopnea Resp: Denies: dyspnea, productive cough, change in phlegm color or hemoptysis GI: Denies: abdominal pain, nausea, vomiting, diarrhea, constipation, hematochezia or melena : Denies: flank pain, difficulty urinating, urinary frequency or hematuria Musc: Denies: back pain, joint swelling or joint redness Skin/Breast: Denies: rash, sores or new lesions Neuro: Denies: headache(s), numbness in extremities, weakness in extremities, dizziness, confusion or seizure-like activity Markus/Lymph: Denies: easy bleeding or purpura All/Imm: Denies: urticaria, throat swelling or tongue swelling Medications/Allergies Home Medications Medication Instructions Recorded Confirmed Last Taken Type acetaminophen 500 mg tablet 500 mg PO Q6H PRN 07/07/20 08/04/20 Unknown History naproxen sodium 220 mg tablet 220 mg PO Q8H 07/07/20 08/04/20 Unknown History (Aleve) Allergies Allergy/AdvReac Type Severity Reaction Status Date / Time Penicillins Allergy rash Verified 08/04/20 08:57 Current Medications Generic Name Dose Route Start Last Admin Trade Name Renetta PRN Reason Stop Dose Admin Aspirin 325 mg 05/22/21 09:00 05/22/21 08:02 Aspirin 325 Mg Ec Tablet PO 325 mg DAILY MADDIE Administration Enoxaparin Sodium 130 mg 05/21/21 20:00 05/22/21 08:02 Enoxaparin 150 Mg/Ml Syringe SUBCUT 130 mg Q12H MADDIE Administration Metoprolol Tartrate 25 mg 05/21/21 21:00 05/22/21 09:10 Metoprolol Tartrate 25 Mg Tablet PO 25 mg BID@0900,2100 MADDIE Administration PFSH Acute PFSH: Medical History HTN (hypertension), benign Inguinal hernia of right side with obstruction and without gangrene Obesity Surgical History H/O circumcision History of hip replacement History of tonsillectomy Hx of vasectomy Family History Father CAD (coronary artery disease) Mother CAD (coronary artery disease) Other Dementia Diabetes Hypertension Stroke Denies family history of Anesthesia complication Bleeding disorder Cancer Social History Smoking and tobacco status: never smoked Second hand smoke exposure: No Smoking risk assessment/counseling performed?: No Alcohol intake: never Desire information about alcohol rehabilitation?: No Counseling given: No Desire information about substance/drug rehabilitation?: No Counseling given: No Adopted: No Caregiver/support person: No Lives independently: Yes Household members: spouse and children Housing: House Marital status: Number of children: 1 service: No Current occupational status: employed Current occupation: [employer] Pets and animals: Yes Pets & animals: cat(s) History of recent travel: No Current gender identity: Male Vitals/I&O/Wt Last Vital Signs Temp 98.2 F 05/22/21 09:11 Pulse 78 05/22/21 09:11 Resp 18 05/22/21 09:11 BP 143/93 05/22/21 09:11 Pulse Ox 92 05/22/21 09:11 Weight last 48 hrs Weight 290 lb Physical Exam Narrative: EXAM NARRATIVE: GENERAL: Obese man sitting in bed in no acute distress HEENT: Pupils equal round reactive to light. No pallor or icterus. NECK: No JVD. No carotid bruit. CARDIOVASCULAR SYSTEM: S1-S2 regular. No S3 or S4 present. No murmur rubs or gallops. RESPIRATORY SYSTEM: Chest clear to auscultation. No wheezes rhonchi or rubs heard. No use of accessory muscles. ABDOMEN: Soft, nontender and nondistended. Normal bowel sounds present. EXTREMITIES: No cyanosis or edema. No signs of chronic venous insufficiency. 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 No focal neurological deficits. SKIN: Normal turgor and temperature. PSYCH: Normal insight and judgment. Data : 05/22/21 05:02 05/22/21 05:02 Other Labs: Lipid panel this morning with total cholesterol 183, triglyceride 173, LDL 117 and HDL 31. A&P Assessment and plan (1) Chest pain: CAD risk factor of obesity and family history of coronary artery disease -Concern for unstable angina given exertional chest discomfort with some resting recurrent discomfort while in the hospital last night and earlier this morning. -No EKG changes and no regional wall motion abnormalities on echocardiogram. -Plan for cardiac catheterization -Risks and benefits discussed with the patient including risk of bleeding, bruising, coronary perforation, arrhythmia, pericardial effusion, heart attack, stroke and . -Patient and his Rosie are agreeable to proceed with the procedure. Status: Acute Plan Obesity Elevated hemoglobin A1c Family history of coronary artery disease Thank you for allowing me to participate in patient's care. Please feel free to call with questions or concerns. Coding Level of Care Code Acute Inspector Watch Assembly for Chg Fwd Diagnoses Chest pain R07.9 Time Spent (min) 30
--- NOTE | 2021-05-22 11:01 | XACV_ITS ---
Exam Room: [facility] Ht: 183 cm Wt: 129 kg BSA: 2.61 m2 Gender: Male : 1970 Any Known Allergies: Penicillins Exam Priority: Routine Procedure(s): Procedure Description: Diagnostic procedure Procedure Description: Left Heart Catheterization Procedure Description: Left ventriculography Procedure Description: Coronary Angiography Diagnostic Cath Status: Elective Diagnostic Findings * 50-year-old man with past medical history of hypertension obesity and family history of coronary artery disease presented with exertional angina associated with nausea vomiting and diaphoresis while shoveling snow. No significant EKG changes or troponin ST elevation. Given recurrent episodes of chest pain, there was concern for unstable angina and hence patient was taken to the [facility] for cardiac catheterization.. * Left Main has no disease. * Mid Left Anterior Descending: minimal 30% stenosis, ABIGAIL: 2 flow. * Distal Right Coronary Artery: minimal 30% stenosis, ABIGAIL: 3 flow. PCI Indication: Other Diagnostic RX Recommendation: none Ventriculography Ejection Fraction: 55.0 % Left Ventriculography Findings: * Normal left ventricular size and systolic function. * Left ventriculogram was performed in BELLA view. * EF 55 %, estimated. Pressures Phase:Rest AO : 149 / 75 ( 97 ) @ 10:33:00 AM 98 / 80 ( 90 ) @ 10:35:00 AM 114 / 73 ( 92 ) @ 10:51:00 AM 114 / 73 ( 91 ) @ 10:51:00 AM LV : 114 / 2 / 16 @ 10:49:00 AM 116 / 5 / 18 @ 10:51:00 AM 113 / 4 / 16 @ 10:51:00 AM Valves Phase:DefaultPhase AV : 0.0 @ 12:59:03 PM AV Mean Gradient: 0.0 @ 12:59:03 PM Clinical Evaluation EBL: 5mL-10mL Procedural Details Procedure Consent Obtained. Pre-Procedure Time Out. Identified patient by full name and date of as verbalized by the patient/guarantor. Does the consent match the physician's order: Yes. Accurate & Complete Informed Consent: Yes. Inpatient/Outpatient History & Physical on Chart: Yes. If H&P is completed, is and addenduem needed: No; If yes, is the addendum complete: N/A. Visualize and Verify Site with Patient/Guarantor: N/A. Relevant Radiology Images available: Yes. Pre-op teaching completed and patient verbalized understanding. The risks, benefits, and alternatives of sedation and/or procedure were discussed by physician. The patient agrees to continue. Procedure started. [facility] Clinical Fraility Score: 3: Managing Well. [facility] Indications: Suspected CAD. Chest Pain Symptom Assessment: Typical Angina Symptoms. Correct patient, site and procedure confirmed by cath team. Current diagnosis: Chest Pain. PERRLA. Strong, equal hand reconciliation accountant bilaterally. Lungs clear x 5 lobes. A 18 gauge IV was started in the left anticubital using aseptic technique. IV Fluids: 0.9% NaCl at KVO. 0 mL infused prior to laborer wood preserving plant. Oxygen started at 2liters/min via nasal canula. right groin was prepped with chloroprep then draped in the usual sterile fashion. right radial was prepped with chloroprep then draped in the usual sterile fashion. Physician notified. Baseline sample Acquired. HR: 66 BPM. Physician arrived. Current Diagnosis : Chest Pain. Physician scrubbed in. Immediate Pre-Procedure Time Out. Correct Patient: Yes; Correct Procedure: Yes; Correct Site: Yes; Correct Patient Position: Yes; Correct Supplies: Yes; Dried Flammable Prep: Yes; Blood Products Available: N/A;. Lidocaine 1% infiltrated to the right groin. Arterial access obtained. needle out. Arterial access obtained. A 5 mexican TIG catheter in over wire. Multiple views taken of left coronary artery. Catheter redirected to the RCA. Multiple views taken of right coronary artery. Catheter removed over the glide wire. A 6 mexican Angled Pig catheter in over wire. glidewire out. standard J wire inserted. EDP Sample taken: LV 114/2,16; HR: 70 BPM; SpO2: 92%. LV gram performed in BELLA @ 10 mL/second for a total of 30 mL. EDP Sample taken: LV 116/5,18; HR: 70 BPM; SpO2: 92%. Pullback taken: LV 113/4,16; AO 114/73(92); Mean: 0mmHg, Peak to Peak: 0mmHg, SEP: 14sec/min; HR: 72 BPM; SpO2: 93%. Catheter removed over the standard wire. A TR Band was successful obtaining hemostatsis at the Right Radial artery insertion site. Post Procedure: Pulses reassessed and unchanged. PERRLA. Strong, equal hand reconciliation accountant bilaterally. No VTE prophylaxis required. Medication's Wasted: Nitro = 49.8 mg. Medication's Wasted: Heparin = 1000 units. Medication's Wasted: Lidocaine 1% = 18 mL. Medication's Wasted: Other = Fentanyl 50 mg. Total IV fluids: 25 mL. Contrast type used: Visipaque 320 mgI/mL, 200 mL bottle. Post-op diagnosis: Normal Coronaries. Complications: None. Estimated blood loss: 5mL-10mL. Responsiveness - Normal response to verbal stimuli; alert and oriented, PERRLA. Airway - Unaffected, no intervention required; spontaneous ventilation. Circulation: W/N/L, pulses unchanged. Nausea/Vomiting: No. Procedure completed. Patient transferred by wheelchair to 1st floor. Vital chart was stopped. Access Site Site: Right Radial artery Sheath Size: 6 Fr Hemostasis Method: TR Band Hemostasis Success: Successful Procedure Medications Start: 12:12 PM Stop: 12:12 PM Medication: Versed Amount: 1 mg Route: I.V. Start: 12:12 PM Stop: 12:12 PM Medication: Fentanyl Amount: 50 mcg Route: I.V. Start: 12:20 PM Stop: 12:20 PM Medication: Versed Amount: 1 mg Route: I.V. Start: 12:28 PM Stop: 12: PM Medication: Nitrogylcerin Amount: 200 mcg Route: I.A. Start: 12:31 PM Stop: 12:31 PM Medication: Versed Amount: 1 mg Route: I.V. Start: 12:31 PM Stop: 12:31 PM Medication: Heparin Amount: 5000 units Route: I.V. Start: 12:43 PM Stop: 12:43 PM Medication: Versed Amount: 1 mg Route: I.V. I, the attending physician, have reviewed and verified all procedure medications. Yes, all medications given per verbal order History/Risk Factors Hypertension: Yes Dyslipidemia: No Peripheral Arterial Disease (PAD): No Myocardial Infarction (TN): No Obesity: Yes Renal Disease: No Family History: Coronary Artery Disease Prior Interventions PCI: No CABG: No Valve Surgery: No Report Signatures Finalized by Aruna Keane MD on 06/03/2021 01:11 PM
--- NOTE | 2021-05-22 13:00 | W.PM.OPSUD ---
Surgery/Procedure H&P Update DATE OF PROCEDURE: May 22, 2021 DATE H&P PERFORMED: 05/22/21 CHANGES TO PREVIOUS DOCUMENTATION: None PREOP DIAGNOSIS: chest pain PRIMARY INDICATION FOR PROCEDURE: Chest pain concern for unstable angina PHYSICAL EXAM: alert, oriented x 3, clear to auscultation bilaterally and regular rate & rhythm AIRWAY EVAL/ANESTHESIA PLAN: normal airway, ASA II, Risks, benefits & alternatives of sedation and/or procedure discussed and Patient agrees to continue as planned
[2021-05-22 13:03] LABS: SARS Covid-2 Antigen Negative (Negative)
--- NOTE | 2021-05-22 17:53 | P.DS_ITS ---
Discharge Providers Date of Admission: 05/21/21 18:30 Date of Discharge: May 22, 2021 Attending Provider at Admission: Souleymane Yu Attending Provider at Discharge: Souleymane Yu Primary Care Provider: MABEL Mcdaniels Diagnoses at Discharge Discharge Diagnosis (1) Chest pain: Status: Acute Reason for Visit Reason for Visit: cp Hospital Course Hospital Course Pleasant 50-year-old gentleman with history of obesity, possible hypertension was hospitalized for assessment management due to episodes of chest pain, tightness, associated with lightheadedness, pale/yap color, shortness of breath, reporting also milder episodes occasionally occurring prior to the one before the hospitalization. With family history of CAD, risk factors, possible unstable angina was treated with aspirin, anticoagulation, beta-junior, A1c, cholesterol panel were obtained. Troponin series with elevation. EKG with nonspecific changes. TTE was obtained, which showed normal ejection fraction, normal right ventricle size systolic function, normal pulmonary pressure, no significant valvular abnormality. He was assessed by cardiology. Underwent additional assessment by coronary angiography which found mild nonobstructive CAD. A1c shows advanced prediabetes, 6.4%. He is instructed to maintain consistent carbohydrate diet. Please discuss with him weight loss options. He is instructed to monitor blood pressures. He is started on statin, aspirin. Beta-junior. In case of additional episodes he is prescribed nitroglycerin, is instructed to measure his pulse rate, and if associated also with shortness of breath to try his inhaler as well. He is asked to follow-up with cardiology in office and in case of recurrent episodes event monitor may be considered as well. He is instructed not to lift more than 2 pounds for 3 days, seek medical att ention immediately in case of any concerning symptoms at access site or otherwise Physical Exam Narrative: EXAM NARRATIVE: at bedside. Const: COMMON NORMALS: no acute distress and patient oriented x3 NUTRITIONAL APPEARANCE: obese OTHER: He reports he is doing very well. Denies any recurrence of episodes of chest discomfort. HENMT: COMMON NORMALS: oropharynx normal Neck/C-Spine: COMMON NORMALS: no JVD Resp: COMMON NORMALS: normal respiratory effort and clear to auscultation bilaterally AUSCULTATION: clear to auscultation bilaterally Cardio: COMMON NORMALS: no JVD, regular rhythm, S1 normal heart sound present, S2 normal heart sound present and No murmurs present (Cardio) RHYTHM: regular rhythm HEART SOUNDS: S1 normal heart sound present and S2 normal heart sound present GI: COMMON NORMALS: Normal to inspection, nondistended, normoactive bowel sounds present, Soft to palpation and non-tender PALPATION: Yes Soft to palpation Extremity: COMMON NORMALS: no joint enlargement and no pedal edema Neuro: COMMON NORMALS: patient oriented x3 and moves all extremities Skin: COMMON NORMALS: no rashes or lesions noted GENERAL SKIN EXAM: no rashes or lesions noted Discharge Data Studies Completed and Pending Completed Studies During Hospitalization Category Date Time Status XR chest 1V portable [id number] Stat Exams 05/21/21 12:13 Completed CV. echo complete* [id number] Routine Ultrasound 05/22/21 06:00 Completed Pending at discharge Category Date Time Status E TAILER request for service Routine Exams 05/22/21 11:01 Ordered Basic Metabolic Panel AM LABS Lab 05/23/21 04:00 Ordered Basic Metabolic Panel AM LABS Lab 05/24/21 04:00 Ordered Complete Blood Count w/Auto AM LABS Lab 05/23/21 04:00 Ordered Complete Blood Count w/Auto AM LABS Lab 05/24/21 04:00 Ordered Radiology Impressions Chest X-Ray 05/21/21 12:13 IMPRESSION: No acute abnormality. Laboratory Results WBC 7.1 10^3/uL (4.0-10.0) 05/22/21 05:02 RBC 5.12 10^6/uL (4.1-5.3) 05/22/21 05:02 Hgb 14.9 g/dL (11.7-16.6) 05/22/21 05:02 Hct 47.1 % (42.0-52.0) 05/22/21 05:02 MCV 92.0 fl (80-94) 05/22/21 05:02 MCH 29.1 pg (28.0-34.0) 05/22/21 05:02 MCHC 31.6 g/dL (30.0-36.0) 05/22/21 05:02 RDW 13.5 % (12.1-15.1) 05/22/21 05:02 Plt Count 198 10^3/cmm (130-400) 05/22/21 05:02 MPV 11.4 fL (7.4-10.4) H 05/22/21 05:02 Neut % (Auto) 63.2 % 05/22/21 05:02 Lymph % (Auto) 25.4 % 05/22/21 05:02 Custer % (Auto) 7.9 % 05/22/21 05:02 Eos % (Auto) 2.5 % 05/22/21 05:02 Baso % (Auto) 0.7 % 05/22/21 05:02 Neut # (Auto) 4.50 10^3/uL (1.8-7.7) 05/22/21 05:02 Lymph # (Auto) 1.8 10^3/uL (0.8-4.8) 05/22/21 05:02 Custer # (Auto) 0.6 10^3/uL (0.2-0.9) 05/22/21 05:02 Eos # (Auto) 0.2 10^3/uL (0.0-0.8) 05/22/21 05:02 Baso # (Auto) 0.1 10^3/uL (0.0-0.1) 05/22/21 05:02 Nucleated RBC % (auto) 0 % 05/22/21 05:02 Nucleated RBCs # 0.0 /100WBC 05/22/21 05:02 Sodium 137 mmol/L (136-145) 05/22/21 05:02 Potassium 4.4 mmol/L (3.5-5.1) 05/22/21 05:02 Chloride 102 mmol/L (98-107) 05/22/21 05:02 Carbon Dioxide 24 mmol/L (22-29) 05/22/21 05:02 Anion Gap 15.4 (5-19) 05/22/21 05:02 BUN 15 mg/dL (6-20) 05/22/21 05:02 Creatinine 0.9 mg/dL (0.7-1.2) 05/22/21 05:02 GFR Calculation 89.0 mL/min (90-130) L 05/22/21 05:02 Glucose 106 mg/dL (65-115) 05/22/21 05:02 Estimat Average Glucose 137 05/22/21 05:02 Hemoglobin A1c 6.4 % (4.0-6.0) H 05/22/21 05:02 Calculated Osmolality 285 mOsm/kg (285-295) 05/22/21 05:02 Calcium 9.9 mg/dL (8.5-10.5) 05/22/21 05:02 Total Bilirubin 0.3 mg/dL (0.15-1.2) 05/21/21 15:55 AST 24 U/L (0-40) 05/21/21 15:55 ALT 33 U/L (0-41) 05/21/21 15:55 Alkaline Phosphatase 76 IU/L (40-130) 05/21/21 15:55 Troponin T Baseline 11 ng/L (0-15) 05/21/21 14:32 Troponin T 120 Minute 11.17 ng/L (0-15) 05/21/21 15:55 Delta Troponin T 0.17 ABS# (0-10) 05/21/21 15:55 Troponin T Hi Sens 6Hr 10.64 ng/L (0-15) 05/21/21 18:36 Troponin T Hi Sens 6Hr Delta Not Reportable 05/21/21 18:36 NT-Pro-B Natriuret Pep 18 pg/mL (0-125) 05/21/21 15:55 Total Protein 7.3 g/dL (6.6-8.7) 05/21/21 15:55 Albumin 4.4 g/dL (3.5-5.2) 05/21/21 15:55 Globulin 2.9 g/dL (1.3-4.6) 05/21/21 15:55 Triglycerides 173 mg/dL (0-150) H 05/22/21 05:02 Cholesterol 183 mg/dL (0-200) 05/22/21 05:02 LDL Cholesterol, Calc 117 mg/dL (50-129) 05/22/21 05:02 HDL Cholesterol 31 mg/dL (60-100) L 05/22/21 05:02 LDL/HDL Ratio 3.77 RATIO (0.00-3.22) H 05/22/21 05:02 Cholesterol/HDL Ratio 5.90 mg/dL (1.0-5.00) H 05/22/21 05:02 Lipase 38 U/L (13-60) 05/21/21 15:55 TSH 3.93 uIU/mL (0.27-4.20) 05/22/21 05:02 SARS-CoV-2 Ag (Rapid) Negative (Negative) 05/22/21 11:30 Vitals Last Vital Signs Temp 98.2 F 05/22/21 09:11 Pulse 78 05/22/21 16:15 Resp 17 05/22/21 16:15 BP 120/78 05/22/21 16:30 Pulse Ox 92 05/22/21 09:11 Discharge Plan Discharge Patient Disposition: Home Condition: Stable Prescriptions: New atorvastatin 40 mg Tablet 20 mg PO BEDTIME Qty: 60 2RF metoprolol tartrate 25 mg Tablet 25 mg PO BID@0900,2100 Qty: 60 2RF nitroglycerin 0.4 mg Tablet, Sublingual 0.4 mg sublingual Q5M PRN (Reason: Chest Pain) Qty: 25 1RF aspirin 81 mg capsule 325 mg PO DAILY Qty: 30 3RF Continued acetaminophen 500 mg tablet 500 mg PO Q6H PRN (Reason: Pain) 0RF Discontinued naproxen sodium [Aleve] 220 mg tablet 220 mg PO Q8H PRN (Reason: Pain) 0RF Discharge Orders: Discharge Order (Routine); Ordered 05/22/21 Ordered By: Souleymane Yu Referrals: Rock Lowery FNP-C [Primary Care Provider] - 4-7 days ([facility] will contact you to schedule an follow-up appointment in 4 to 7 days. If you haven't heard from them by Monday. Please ) Madelin Rothman FNP [Nurse Practitioner] - ([facility] will contact you to schedule an follow-up appointment in 4 to 7 days. If you haven't heard from them by Monday. Please call ) Aruna Keane MD [Physician] - ([facility] will contact you to schedule an follow-up appointment in 4-6 weeks. If you haven't heard from them by Monday. Please call ) Discharge Diet: Cardiac and Diabetic Discharge Activity: Increase activity as tolerated and Limit activity as instructed Patient Instructions: Metoprolol (By mouth), Nitroglycerin (By mouth), Aspirin (By mouth), Atorvastatin (By mouth), Prediabetes (GEN), Heart Catheterization (DC), Chest Pain Stoplight, Opioid Safety, Post Angiogram Home Care Instructions Activity Restrictions/Additional Instructions: Please discuss with your primary doctor regarding prediabetes, your A1c is 6.4 (very close to diabetes). Please maintain consistent carbohydrate diet. Please discuss with your doctor regarding weight loss. Please monitor blood pressures at home twice daily, write down values to bring to your appointment. Continue to optimize risk factors of coronary disease with your doctor. If you experience another episode of chest discomfort, with lightheadedness, shortness of breath, please sit down or lie down immediately, measure pulse rate over 30 seconds and multiplied by 2 or 1 minute to get the heart rate. If pulse rate is very high, above 140-150 bpm despite being addressed, call 911. If you are having short of breath, try your inhaler. Stop naproxen. Avoid any NSAIDs. Discharge Attestations Time Spent in Discharge Care*: greater than 30 min Quality Metrics Clinical Quality Measures [ No reported AMI, CVA or VTE this stay] Coding Level of Care Code Acute Chg FW DC note Diagnoses Chest pain R07.9
--- NOTE | 2021-05-22 18:00 | PC.NURSE ---
Discharge Note Patient discharged to Home via private vehicle accompanied by Spouse. Discharge instructions reviewed with patient and/or patient relations representative. Mobile pharmacy medications and/or prescriptions provided. Belongings/home medications returned.
== END 2021-05-22 18:00 | disposition home or self-care (01) ==
LOC: ER 18:20 → ER IP 19:29 → CSU 05-22 13:47
PROVIDERS: Internal Medicine; Internal Medicine Cardiovascular Disease; Nurse Practitioner Family; Admitting Provider Internal Medicine; Emergency Provider Emergency Medicine; PCP Nurse Practitioner; Visit Provider Internal Medicine
DX: R07.89 Other chest pain (principal); E66.9 Obesity, unspecified; Z68.39 Body mass index [BMI] 39.0-39.9, adult; I25.10 Atherosclerotic heart disease of native coronary artery without angina pectoris; Z82.49 Family history of ischemic heart disease and other diseases of the circulatory system; Z79.82 Long term (current) use of aspirin; I10 Essential (primary) hypertension
CPT/HCPCS: 36415; 71045; 80048; 80053; 80061; 83036; 83690; 83880; 84443; 84484; 85025; 87426; 93005; 93306; 93452; 93458; 96372; 99285; C1769; C1887; C1894; G0378; J1644; J1650; J2250; J3010; J3490; J7030; Q9967

== ENCOUNTER → 2022-05-25 11:35 | Outpatient (BNVA) | payer OTHER, SELFPAY | PROVIDERS: PCP Nurse Practitioner; Visit Provider Nurse Practitioner Family | DX: E11.9 Type 2 diabetes mellitus without complications (principal); I10 Essential (primary) hypertension; E66.9 Obesity, unspecified; Z12.5 Encounter for screening for malignant neoplasm of prostate | CPT/HCPCS: 80053; 80061; 83036; 84443; G0103 ==